=== PATIENT | female | born 1985 | race Caucasian/White ===

== ENCOUNTER 2018-05-30 12:56 | Outpatient (CLI) | payer MEDICAID ==
[~2018-05-30] VITALS: Ht 162.6 cm; Wt 66.8 kg
[~2018-05-30 12:56] MED LIST: PRENAT PO
[2018-05-30 13:40] VITALS: BP 96/59; PULSE 72; RESP 18; Ht 162.6 cm; Wt 66.8 kg
--- NOTE | 2018-05-30 16:35 | PN ---
Triage Information Date/Time Reason for visit: Vag spotting / bleeding Weeks of Gestation 22 weeks and 1 day /Para Diabetes: none Hypertention: none Objective Vital Signs Date Temp Pulse Resp B/P (MAP) Pulse Ox O2 O2 Flow FiO2 Time Delivery Rate 05/30/18 98.0 72 18 96/59 (71) 13:40 Heart Rate: 130's Contractions: None Results/Medications Results 24 hrs Laboratory Tests Test 05/30/18 13:40 Urine Color YELLOW Urine Clarity CLEAR Urine pH 7.0 Urine Specific [place] 1.005 Urine Ketones NEGATIVE Urine Nitrite NEGATIVE Urine Bilirubin NEGATIVE Urine Urobilinogen NEGATIVE Urine Leukocyte Esterase NEGATIVE Urine Microscopic RBC 0 Urine Microscopic WBC 0 Urine Hemoglobin 2+ H Urine Glucose NEGATIVE Urine Total Protein NEGATIVE Disposition: Discharge Assessment/Plan 33 years old 2 para 1001 with single intrauterine at 22 weeks and 1 day complaining of vaginal spotting. Currently she has no further vaginal spotting or bleeding ultrasound performed she states good movement. She denies nausea, vomiting, shortness of breath, chest pain, headache, visual changes, vaginal bleeding or LOF. -FHR: No sign of metabolic acidosis- Category I -Contractions: None -Maximum vertical pocket is 3.6 cm cervical length 3.1 cm -Blood type is Rh+ -Symptoms and sign of labor, preeclampsia, kick count discussed with patient, she voiced understanding. All of her questions answered. -Patient was discharged home in stable condition with the appropriate discharge instructions provided. I would like patient to have close follow-up with her primary physician or outpatient clinic in 1-2 days or return to triage for worsening symptoms or any other urgent concerns. Currently she has no further vaginal bleeding or spotting. ALEXANDER MARQUEZ May 30, 2018 16:35
--- NOTE | 2018-05-30 18:56 | TRIAGE ---
OB Triage Datetime Report Generated by CPN: 05/30/2018 18:56 Datetime: 05/30/2018 16:06 Stage of : OB Triage Datetime: 05/30/2018 15:30 Labor Evaluation Frequency: 0 Monitor Mode: External Pattern: Normal: <= 5 Contractions in 10 Minutes Resting Tone Garrison: Relaxed Comments: REMOVED DUE TO GESTATIONAL AGE Pain Assessment Pain Scale: 0 Pain Presence: None/Denies Pain Type: N/A Pain Goal: 3 Pain Relief Measures: Comfort Measures Datetime: 05/30/2018 14:39 Labor Evaluation Frequency: 0 Monitor Mode: External Pattern: Normal: <= 5 Contractions in 10 Minutes Resting Tone Garrison: Relaxed Comments: REMOVED DUE TO GESTATIONAL AGE Pain Assessment Pain Scale: 0 Pain Presence: None/Denies Pain Type: N/A Pain Goal: 3 Pain Relief Measures: Comfort Measures Datetime: 05/30/2018 13:43 Stage of : OB Triage Datetime: 05/30/2018 13:34 Stage of : OB Triage Assessment Type: Triage Maternal Assessment Level of Consciousness: Fully Conscious DTR's/Clonus: DTRs 2+; No Clonus Headache: Denies Blurred Vision: No Respiratory Effort: Unlabored; Regular Rhythm; Equal Expansion Breath Sounds, Left: Clear and Equal Breath Sounds, Right: Clear and Equal Nausea/Vomiting: Denies RUQ Epigastric Pain: Denies Facial Edema: None Temperature Route: Axillary Fall Risk Assessment History of Falling: (0) No Secondary Diagnosis: (0) No Ambulatory Aid: (0) Bedrest/Nurse Assist IV Therapy: (0) No Gait: (0) Normal/Bedrest/Immobile Mental Status: (0) Oriented to Own Ability Fall Score: 0 Fall Risk Score Definition: No Risk: No action required Labor Evaluation Frequency: X1 Monitor Mode: External Duration (sec)2399: 40 Quality: Mild Pattern: Normal: <= 5 Contractions in 10 Minutes Resting Tone Garrison: Relaxed Heart Rate FHR Baseline Rate: 140 (Annotations: X 1 MINUTE) Monitor Mode: External US Pain Assessment Pain Scale: 0 Pain Presence: None/Denies Pain Type: N/A Pain Goal: 3 Pain Relief Measures: Comfort Measures Datetime: 05/30/2018 13:31 Time of Arrival: 05/23/2018 12:50 EGA: 21.0 Arrived By: Ambulatory Arrived From: Home Chief Complaint: BLEEDING BRIGHT RED BLOOD APPROX 2-3 TSP THIS AM, PERINEAL PAIN THAT WAS CONSTANT, POSS LEAKING, Movement: Present Rupture of Membranes: Denies Vaginal Discharge: Present Recent Sexual Intercouse: Denies Abdominal Trauma: Not Applicable Time Provider Notified: 05/30/2018 13:43 Provider Notified: RAQUEL Initial Plan: MONITOR, U/A C_S, U/S FOR PLACENTA, CL, MARTHA
== END 2018-05-30 16:19 | disposition home or self-care (01) ==
LOC: OBT 12:56 → L-D 12:56 → OBT 16:19
PROVIDERS: ATTEND Obstetrics & Gynecology
DX: O26.852 Spotting complicating pregnancy, second trimester (principal); Z3A.22 22 weeks gestation of pregnancy
CPT/HCPCS: 76815; 76817; 81001; 87086; Z7500; G0463

== ENCOUNTER 2018-09-28 10:32 | Inpatient (IN) | payer MEDICAID ==
[~2018-09-28] VITALS: Ht 162.6 cm; Wt 78.0 kg
[~2018-09-28 10:32] MED LIST changes: +HYDR-3601 PO; +IBUP800T48 PO
[2018-09-28 10:51] VITALS: Ht 162.6 cm; Wt 78.0 kg
[2018-09-28 10:52] VITALS: BP 93/64; PULSE 96; RESP 20
[2018-09-28] MEDS ORDERED: CEFAZOLIN 2 GM/50 ML (PMX) 50 ML IVPB SCH (11:00)
[2018-09-28] MEDS ORDERED: OXYTOCIN 30 UNITS/LR 500 ML IV SCH ×2 (11:00→15:58)
[2018-09-28] MEDS ORDERED: OXYTOCIN 30 UNITS/LR 500 ML IV PRN ×2 (11:00→16:00)
[2018-09-28] MEDS ORDERED: MISOPROSTOL 200 MCG TAB PR PRN ×2 (11:00→16:00)
[2018-09-28] MEDS ORDERED: METHYLERGONOVINE 0.2 MG INJ IM PRN ×2 (11:00→16:00)
[2018-09-28] MEDS ORDERED: CARBOPROST 250 MCG INJ IM PRN ×2 (11:00→16:00)
[2018-09-28] MEDS: LACTATED RINGER'S 1,000 ML IV SCH ×2 (11:14→13:18)
--- NOTE | 2018-09-28 11:59 | PREAC ---
Date/Time of Note Date/Time of Note DATE: 09/28/18 TIME: 11:58 Anesthesia Eval and Record Evaluation Time Pre-Procedure Interview DATE: 09/28/18 TIME: 11:58 Age 33 Sex female NPO: 8 hrs Preoperative diagnosis iup at 39 weeks Planned procedure repeat c section Past Medical History Past Medical History: None Surgery & Anesthesia Issues No known issue Meds Anticoagulation: No Beta Carlotta within 24 hr: No Reason Beta Carlotta not given: Pt. 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 07/27/14 Current Medications Lactated Ringer's 1,000 ml @ 125 mls/hr Q8H IV Last administered on 09/28/18at 11:14; Admin Dose 125 MLS/HR; Start 09/28/18 at 10:55 Cefazolin Sodium/ Dextrose 50 ml @ 100 mls/hr ONCE IVPB ; Start 09/28/18 at 11:00 Oxytocin/Lactated Ringer's 500 ml @ 125 mls/hr POST IV ; Start 09/28/18 at 11:00 Oxytocin/Lactated Ringer's 500 ml @ 0 mls/hr ONCE PRN IV .VAGINAL BLEEDING; Start 09/28/18 at 11:00 Methylergonovine Maleate (Methergine) 0.2 mg ONCE PRN IM .VAGINAL BLEEDING; Start 09/28/18 at 11:00 Carboprost Tromethamine (Hemabate) 250 mcg ONCE PRN IM .VAGINAL BLEEDING; Start 09/28/18 at 11:00 Misoprostol (Cytotec) 1,000 mcg ONCE PRN GA .VAGINAL BLEEDING; Start 09/28/18 at 11:00 Meds reviewed: Yes Allergies Coded Allergies: No Known Drug Allergies (Verified Allergy, Unknown, 03/06/15) Allergies Reviewed: Yes Labs/Studies Labs Reviewed: Reviewed by anesthesiologist Result Diagram: 09/28/18 1110 Laboratory Tests 09/28/18 11:10 Blood Bank Test 09/28/18 11:10 Rh Immune Globulin Candidate NO test: Positive Pre-procedure Exam Last vitals Vital Signs Date Temp Pulse Resp B/P (MAP) Pulse Ox O2 O2 Flow FiO2 Time Delivery Rate 09/28/18 97.8 96 20 93/64 (74) Room Air 10:52 Airway: Adequate mouth opening, Adequate thyromental dist Mallampati: Mallampati I Teeth: Normal Lung: Normal Heart: Normal ASA Physical Status ASA physical status: 2 Emergency: None Planned Anesthetic Neuraxial: Spinal Planned Pain Management Sub-arachniod narcotics Pre-operative Attestations Prior to commencing anesthesia and surgery, the patient was re-evaluated, there was verification of: *The patient's identity *The results of appropriate recent lab work and preoperative vital signs *The above evaluation not changing prior to induction *Anesthetic plan, risk benefits, alternative and complications discussed with patient/family; questions answered; patient/family understands, accepts and wishes to proceed. KAMILA SERVIN Sep 28, 2018 11:59
[2018-09-28] MEDS ORDERED: ONDANSETRON 4 MG INJ ONE ×2 (14:35→15:19)
[2018-09-28] MEDS ORDERED: DEXAMETHASONE 4 MG/ML 1 ML INJ ONE (14:35)
[2018-09-28] MEDS ORDERED: morphine SULFATE/PF (10 MG/10 ML) INJ ONE (14:55)
[2018-09-28] MEDS ORDERED: MIDAZOLAM 1 MG/ML 2 ML INJ ONE (15:00)
[2018-09-28] MEDS ORDERED: DIPHENHYDRAMINE 50 MG INJ IV PRN (16:00)
[2018-09-28] MEDS ORDERED: NALOXONE (0.4 MG/ML) INJ IV PRN (16:00)
[2018-09-28] MEDS ORDERED: ONDANSETRON 4 MG INJ IV PRN (16:00)
[2018-09-28] MEDS ORDERED: NACL 0.9% 3 ML SYG IV SCH (16:00)
[2018-09-28] MEDS ORDERED: HYDROmorphONE 0.5 MG/0.5 ML SYG IV PRN ×2 (16:00)
[2018-09-28] MEDS ORDERED: ZOLPIDEM 5 MG TAB PO PRN (16:00)
--- NOTE | 2018-09-28 16:07 | HP ---
Date/Time of Note Date/Time of Note DATE: 09/28/18 TIME: 16:04 OB - History Hx of Present Free Text/Dictation 33 y.o. with an IUP at 39w 2d came in today for a repeat with a tubal ligation. Estimated Due Date: Oct 03, 2018 : 2 Para: 1 Care: Good Care Ultrasounds: Normal mid trimester US Obstetrical Complications: None Medical Complications: None Other Concerns: PMHx: none. PSHx: x 1. Nasal surgery. NKDA Past Family/Social History * Past Medical, Surgical, Family and Obstetric Histories reviewed from chart. Blood Type: O+ Rubella: immune RPR/VDRL: Negative GBS Status: Negative HBsAG: Negative OB Admission Exam Vital Signs Vital Signs Vital Signs Date Temp Pulse Resp B/P (MAP) Pulse Ox O2 O2 Flow FiO2 Time Delivery Rate 09/28/18 97.8 96 20 93/64 (74) Room Air 10:52 Physical Exam HEENT: WNL Heart: Rhythm Normal Lungs: Clear Abdomen: WNL Extremities: Normal Cervical Dilatation: None Effacement: 0% Station: Ballotable Membranes: Intact Heart Rate: 140's Accelerations: Accelerations Present Decelerations: No Decelerations Varibility: Moderate Contractions on Admission: None Last 72 hours Lab Results CBC & BMP 09/28/18 11:10 OB Assessment/Plan Reason for admission: section (Repeat) Other Assessment: Desire permanent sterilization Plan: Section (with a BTL.) RADHA GARCÍA MD Sep 28, 2018 16:07
--- NOTE | 2018-09-28 16:18 | OPR ---
Operative Report Planned Procedure Procedure date Sep 28, 2018 Procedure(s) Repeat low tranverse with a bilateral tubal ligation Performed by see signature line Dispatcher Automobile Rental: WILLIAM ROBLES MD Anesthesiologist: KAMILA SERVIN Pre-procedure diagnosis IUP at 39w 2d, previous x 1. Desires permanent sterilization. [id number] Anesthesia Type: Foxxp8v spinal Post-Procedure Post-procedure diagnosis Same Findings Viable baby girl weighing 3340 grams or 7# 6 oz, 19.5" long, and with Apgars of 9/9. Estimated Blood Loss: 400 - 500 mls Specimen(s) none Grafts/Implant(s) none Complication(s) none Pt Condition post procedure: stable Disposition: PACU Procedure Description Under satisfactory spinal anesthesia, the patient was prepped and draped and placed in a supine position, tilted to the left. Pfannenstiel incision was made, removing the old scar, and carried through the subcutaneous tissue. Bleeders brought under control with electrocautery. Fascia incised to the length of the incision. Rectus muscles from the fascia using Bovie cautery. Peritoneum exposed, entered using the surgeons fingers. The bladder flap was developed and a transverse incision was made in the lower segment of the uterus. Amniotic sac ruptured. Clear amniotic fluid noted. The head was delivered using gentle fundal pressure.The mouth and nares were bulb suctioned. The rest of the baby was then easily delivered. The cord was doubly clamped and cut. The baby was brought to the warmer and the team for immediate attention. The placenta was delivered manually intact. Uterine was covered with a moist lap and the cavity was cleaned with dry lap. Uterus closed in 2 layers using #1 chromic in continuous fashion with excellent hemostasis. Peritoneal cavity irrigated with warm saline. Each tube was successively grasped at the fimbrial end and O plain suture was doubly tied including the fimbrial end up until about the h alfway leonardo on the tube. The tube was then cut off and the ends were cauterized. The uterus was replaced back into the abdomen. Sponge, needle and instrument count reported to be correct. Abdominal peritoneum closed with 2-0 Chromic continuously. Rectus muscle approximated with the same suture. Fascia closed with 0-Vicryl. The subcutaneous tissue was irrigated and closed with 2-0 Chromic and skin was closed with 3-0 Monocryl in a subcuticular stitch. Steristrips with Mastosol were placed. Estimated blood loss 500 mL. Urine was clear. RADHA GARCÍA MD Sep 28, 2018 16:18
[2018-09-28] MEDS: OXYTOCIN 30 UNITS/LR 500 ML IV SCH ×2 (16:22→20:15)
[2018-09-28] MEDS: KETOROLAC 30 MG INJ IV PRN (16:32)
--- NOTE | 2018-09-28 17:55 | PAC ---
Date/Time of Note Date/Time of Note DATE: 09/28/18 TIME: 17:54 Post-Anesthesia Notes Post-Anesthesia Note Last documented vital signs Vital Signs Date Temp Pulse Resp B/P (MAP) Pulse Ox O2 O2 Flow FiO2 Time Delivery Rate 09/28/18 97.8 96 20 93/64 (74) Room Air 1755 Activity: WNL Respiratory function: WNL Cardiovascular function: WNL Mental status: Baseline Pain reasonably controlled: Yes Hydration appropriate: Yes Nausea/Vomiting absent: Yes KAMILA SERVIN Sep 28, 2018 17:55
[2018-09-28 18:15] VITALS: BP 109/61; PULSE 57; RESP 16
[2018-09-28] MEDS: IBUPROFEN 800 MG TAB PO SCH ×2 (19:55→23:28)
[2018-09-28 20:00] VITALS: BP 108/59; PULSE 50; RESP 19
[2018-09-28 23:30] VITALS: BP 111/60; PULSE 55; RESP 20
[2018-09-29] MEDS: OXYTOCIN 30 UNITS/LR 500 ML IV SCH ×5 (00:15→23:04)
[2018-09-29 03:47] VITALS: BP 90/54; PULSE 55; RESP 17
[2018-09-29] MEDS: KETOROLAC 30 MG INJ IV PRN ×2 (03:47→09:44)
[2018-09-29] MEDS: LANOLIN HPA 1 PKT TOP PRN (03:47)
[2018-09-29] MEDS: IBUPROFEN 800 MG TAB PO SCH ×3 (06:00→18:01)
[2018-09-29 08:00] VITALS: BP 106/58; PULSE 55; RESP 20
[2018-09-29 12:00] VITALS: BP 116/68; PULSE 87; RESP 18
--- NOTE | 2018-09-29 13:17 | QN ---
Documentation Comment POD #1 Pt with good pain control, taking both Motrin 800 and Mason. No flatus as of yet but no nausea or vomiting. Had a regular diet for breakfast. Letting the baby suckle continuously and her nipples are very sore. T=98.2 BP 106/58 Fundus is firm. Dressing is clean, dry and intact. Lochia minimal Ext with A-pumps and NT. WBC 12.4 Hgb 11.2 Plts 166K P: Continue care. Plan D/C 10/01. RADHA GARCÍA MD Sep 29, 2018 13:17
[2018-09-29 16:02] VITALS: BP 104/58; PULSE 65; RESP 18
[2018-09-29] MEDS: HYDROCODONE/APAP (5/325) TAB PO PRN ×2 (16:24→19:56)
[2018-09-29 19:45] VITALS: BP 96/54; PULSE 70; RESP 18
[2018-09-30] MEDS: IBUPROFEN 800 MG TAB PO SCH ×4 (00:05→17:30)
[2018-09-30] MEDS: HYDROCODONE/APAP (5/325) TAB PO PRN ×5 (00:05→21:42)
[2018-09-30] MEDS: OXYTOCIN 30 UNITS/LR 500 ML IV SCH (02:12)
[2018-09-30 04:56] VITALS: BP 100/63; PULSE 66; RESP 19
[2018-09-30 08:00] VITALS: BP 91/50; PULSE 64; RESP 18
[2018-09-30] MEDS: LANOLIN HPA 1 PKT TOP PRN (08:35)
[2018-09-30 15:37] VITALS: BP 102/61; PULSE 76; RESP 18
[2018-09-30 19:10] VITALS: BP 97/55; PULSE 79
[2018-10-01] MEDS: IBUPROFEN 800 MG TAB PO SCH ×3 (00:05→12:02)
[2018-10-01 04:00] VITALS: BP 101/66; PULSE 56; RESP 18
[2018-10-01] MEDS: HYDROCODONE/APAP (5/325) TAB PO PRN ×3 (06:05→17:33)
[2018-10-01 08:00] VITALS: BP 103/69; PULSE 59; RESP 18
[2018-10-01] MEDS ORDERED: DIPHTH/TET/ACEL PERTUSS (ADULT) 0.5 ML VIAL IM* ONE (09:00)
--- NOTE | 2018-10-01 14:07 | PD.PPDC ---
SUSTAINABLE DESIGN COORDINATOR Discharge Instruction Condition [id number] Patient Condition: Nlluc4r Good Diet Elzkb1Ij Diet: Zmmtp3x Resume Regular Diet Activity/Restrictions [id number] Activity: Skmzl2d Bedrest May be up to bathroom May be up for meals May Shower Mplxt4Rq Restrictions: Ixddl2f No Exercising No Lifting No Driving Minimize Walking Minimize Stair-climbing No Sexual Activity Nothing in the Vagina No [place] No Tampons, douche Wound/Drain Care Instructions [id number] Wound/Drain Care Hdcgy7u Remove Steri Strips in 2 Instructions: weeks Keep clean and dry Follow-up Follow-up with Physician: 2, Week/Weeks Return to clinic for Fdfsl0Fk SHERIFF SERGEANT Instructions: Siobw1m Fever greater than 101 Chills Worsening abdominal pain Excessive Vaginal Bleeding Kqbti2Yx OB Instructions: Aofwk9z Breast Tenderness Depression Lykbr6Dh Surgical Instructions: Aijde4h Incisional Drainage Incisional Redness RADHA GARCÍA MD Oct 01, 2018 14:07
--- NOTE | 2018-10-01 14:11 | DS ---
Date/Time of Note Date/Time of Note DATE: 10/01/18 TIME: 14:09 Obstetrical Discharge Record Final Diagnosis Final Diagnosis: Term delivered Vaginal Delivery Obstetrical Delivery: Bilateral Tubal Ligation Section Section: Repeat Complications Augmentation: No Induction: No Rupture of Membranes: No Condition on Discharge Physical Assessment Last Vitals: T=98.1 BP 103/69 Voiding: Yes Bowel Movement: Yes Breast: Soft, non-tender Fundus: Firm Abdomen and Incision: Incision is clean, dry, and intact. Steristrips in place. Calf Tenderness: No Patient Condition: Good RADHA GARCÍA MD Oct 01, 2018 14:11
[2018-10-01] MEDS ORDERED: MAGNESIUM CITRATE 300 ML BTL PO ONE (14:30)
[2018-10-01 15:59] VITALS: BP 94/63; PULSE 67; RESP 18
[2018-10-01] MEDS: LANOLIN HPA 1 PKT TOP PRN (16:34)
[2018-10-01] MEDS ORDERED: BETHANECHOL 25 MG TAB PO SCH ×3 (18:04→21:00)
[2018-10-01 19:30] VITALS: BP 100/58; PULSE 70; RESP 18
--- NOTE | 2018-10-02 21:06 | DELSUM ---
Delivery Summary A-C Datetime Report Generated by CPN: 10/02/2018 21:06 DELIVERY PERSONNEL Sock Knitting Machine Operator: [place], May MATERNAL INFORMATION Delivery Anesthesia: Spinal Medications in Delivery: see anesthesia Delivery QBL (ml): 600 Placenta Cultured: No Maternal Complications: Other Other Maternal Complications: scheduled c/s LABOR SUMMARY EDC: 10/03/2018 00:00 No. Babies in Womb: 1 Attempted: No Labor Anesthesia: None LABOR INFORMATION Reason for Induction: Not Applicable Group B Beta Strep: Negative Antibiotics # of Doses: 1 Steroids Given: None Reason Steroids Not Administered: Not Applicable MEMBRANES Membranes Rupture Method: Artificial Rupture of Membranes: 09/28/2018 14:58 Length of Rupture (hr): 0.00 Amniotic Fluid Color: Clear Amniotic Fluid Amount: Moderate Amniotic Fluid Odor: None STAGES OF LABOR Stage 3 hr: 0 Stage 3 min: 1 CSECTION DELIVERY Primary Indication: Repeat Elective Secondary Indication: N/A CSection Urgency: Elective CSection Incidence: Repeat Labor: No Labor Elective: N/A CSection Incision: Lower Uterine Transverse Sterilization Procedure: Lynette BABY A INFORMATION Infant Delivery Date/Time: 09/28/2018 14:58 Method of Delivery: Born in Route : No : N/A Forceps: N/A Vacuum Extraction: N/A Shoulder Dystocia : N/A SHOULDER DYSTOCIA BABY A Delivery Date/Time: 09/28/2018 14:58 PRESENTATION/POSITION BABY A Presentation: Cephalic Cephalic Presentation: Vertex Vertex Position: Left Occipital Anterior Breech Presentation: N/A PLACENTA INFORMATION BABY A Placenta Delivery Time : 09/28/2018 14:59 Placenta Method of Delivery: Manual Removal Placenta Status: Delivered SCORES BABY A Heart Rate 1 min: >100 bpm Resp Effort 1 min: Good Cry Reflex Irritability 1 min: Cough/Sneeze/Pulls Away Muscle Tone 1 min: Active Motion Color 1 min: Body [place], Extremit Blue Resuscitation Effort 1 min: Tactile Stimulation SCORE 1 MIN: 9 Heart Rate 5 min: >100 bpm Resp Effort 5 min: Good Cry Reflex Irritability 5 min: Cough/Sneeze/Pulls Away Muscle Tone 5 min: Active Motion Color 5 min: Body [place], Extremit Blue Resuscitation Effort 5 min: Tactile Stimulation SCORE 5 MIN: 9 INFORMATION BABY A Gestational Age at Delivery: 39.2 Gestational Status: Full Term- 39- 40.6 Weeks Outcome : Liveborn, with signs of life Infant Condition : Stable Sex: Female IDENTIFICATION/MEDS BABY A ID Band Number: [id number] ID Band Location: Right Leg; Left Arm Sensor Applied: Yes Sensor Number: [id number] Sensor Location : Cord Clamp Vitamin K Given : Not Given Erythromycin Given: Not Given WEIGHT/LENGTH BABY A Birthweight (gm): 3340 Infant Weight (lb): 7 Weight (oz): 6 Length (in): 19.50 Infant Length (cm): 49.53 CORD INFORMATION BABY A No. Cord Vessels: 3 Nuchal Cord : N/A Cord Blood Taken: Yes Suction: Mouth; Nose ASSESSMENT BABY A Infant Complications: None Physical Findings at Delivery: Within Normal Limits Respirations: Appears Normal Office Assistant Receptionist/ALS Called : No Infant Care By: MAKENZIE/CARINA Transferred To: Remains with Mother
== END 2018-10-01 20:30 | disposition home or self-care (01) | DRG 785 ==
LOC: L-D 10:32 → PP1 18:10
PROVIDERS: ADMIT Obstetrics & Gynecology; ATTEND Obstetrics & Gynecology
PROC: 10D00Z1 Extraction of Products of Conception, Low, Open Approach (ICD-10-PCS; 2018-09-28)
PROC: 0UB70ZZ Excision of Bilateral Fallopian Tubes, Open Approach (ICD-10-PCS; principal; 2018-09-28 12:30)
DX: O34.211 Maternal care for low transverse scar from previous cesarean delivery (principal); Z3A.39 39 weeks gestation of pregnancy; Z37.0 Single live birth; Z30.2 Encounter for sterilization
CPT/HCPCS: 81001; 85025; 85610; 85730; 86592; 86850; 86900; 86901; 87086; 88302; 90715; 99464; J0690; J1100; J1885; J2250; J2274; J2405; J2590; J7120